=== PATIENT | female | born 1995 | race Caucasian/White ===

== ENCOUNTER 2025-03-29 15:24 | Emergency (ER) | payer OTHER, SELFPAY ==
[2025-03-29 15:26] VITALS: BP 124/90
[2025-03-29 15:54] LABS: % Basophils 0.4 % (0-2); % Eosinophils 1.5 % (0-6); % Immature Granulocytes 0.2 % (0-0.5); % Lymphocytes 14.7 % (20.5-51.1); % Monocytes 5.5 % (1.7-9.3); % Neutrophils 77.7 % (42.2-75.2); Absolute Eosinophils 0.1 10^3/uL (0-0.7); Absolute Lymphocytes 1.2 10^3/uL (1.2-3.4); Absolute Monocytes 0.5 10^3/uL (0.1-0.6); Absolute Neutrophils 6.3 10^3/uL (1.4-6.5); Hematocrit 39.9 % (37.0-47.0); Hemoglobin 13.6 g/dL (12.0-16.0); Mean Corp Hgb Conc. 34.1 g/dL (33.0-37.0); Mean Corpuscular Hgb 28.6 pg (27.0-31.0); Nucleated Red Blood Cells % 0 %; Platelet Count 273 10^3/uL (130-400); Red Blood Cell Count 4.75 10^6/uL (4.20-5.40); Red Cell Dist. Width 14.4 % (11.5-14.5); White Blood Cell Count 8.2 10^3/uL (4.8-10.8)
[2025-03-29 16:17] LABS: HCG, Serum Qualitative Screen Negative
[2025-03-29 16:20] LABS: ALT (SGPT) 92 U/L (0-35); AST (SGOT) 54 U/L (14-36); Albumin 4.6 g/dl (3.5-5.0); Alkaline Phosphatase 96 U/L (38-126); Blood Urea Nitrogen 9 mg/dl (7-17); Calcium 9.8 mg/dl (8.4-10.2); Carbon Dioxide 25 mmol/L (22-30); Chloride 107 mmol/L (98-107); Glucose 112 mg/dl (70-99); Potassium 4.1 mmol/L (3.5-5.1); Sodium 140 mmol/L (135-145); Total Bilirubin 0.6 mg/dl (0.2-1.3); Total Protein 8.2 g/dl (6.3-8.2); Troponin I < 0.012 ng/ml; eGFR > 60.00
[2025-03-29 16:49] LABS: TSH Reflex To Free T4 1.08 uIU/ml (0.47-4.68)
--- NOTE | 2025-03-29 18:40 | ED.GENMED ---
History of Present Illness
<ISAAC Rosario - Last Filed: 03/30/25 07:05>
General
Chief Complaint: Throat Problem
Source: patient
Exam Limitations: none
Time Seen by Provider: 03/29/25 17:20
Nursing documentation reviewed up to this point in time: agreed with
History of Present Illness
History of Present Illness:
29yr old female presents to the ER for evaluation. She reports for the past 3 days that she has had discomfort in her throat and upper chest. She notices it is worse when she swallows even has pain at rest. She denies however this sensation of a'
sore throat like I'm sick.' she went to urgent care and they were concerned that they possibly felt a lump to the right neck and sent here to the ER.
She denies a sensation of a sore throat denies any shortness of breath. She does feel sore in the chest when she takes a deep breath however she denies any shortness of breath. She denies any abdominal pain. She does have a history of reflux.
She is on Tirzepatide and has been on this for the past 1 month 6 days ago did receive a higher dose.
She vapes nicotine, no history of DVT PE, no control. She is not short of breath. No leg swelling
Past History
<ISAAC Rosario - Last Filed: 03/30/25 07:05>
Past History
ED Past Medical History: Other (Cellulitis); Negative Asthma, HTN, Hypercholesterolemia or NIDDM
ED Past Surgical History: and Other (Breast augmentation,)
Social History
Tobacco: Smoker
Alcohol: Chronic alcoholic
Drug: Cocaine and IVDA (Heroin)
Personal: Single
Living: with family
Review of Systems
<ISAAC Rosario - Last Filed: 03/30/25 07:05>
Review of Systems
Allergies reviewed?: Yes
All Other Systems: ROS reviewed and negative except as documented in HPI and ROS
Constitutional: Reports no symptoms
EENT: Reports other ('sore to throat/neck with swallowing' )
Respiratory: Reports other (discomfort when taking a deep breath ); Denies trouble breathing
Cardiac: Reports chest pain (soreness to anterior chest )
ABD/GI: Reports no symptoms
: Reports no symptoms
Musculoskeletal: Reports no symptoms
Skin: Reports no symptoms
Neurological: Reports no symptoms
Psychiatric: Reports no symptoms
Phy Exam
<ISAAC Rosario - Last Filed: 03/30/25 07:05>
General Physical Exam
General Presentation: no apparent distress
General age: appears stated age
General Skin: warm and dry
General Habitus: normal
General Mental: alert
General Hydration: appears well hydrated
ENT Exam
ENT Exam: EOMI, pharynx normal (No pharyngeal swelling tolerating secretions well no drooling ) and neck supple
Cardiovascular Exam
Cardiovascular Exam: regular rate/rhythm, no murmur and normal peripheral pulses
Pulmonary Exam
Pulmonary Exam: lungs clear and no respiratory distress
Gastrointestinal Exam
Gastrointestinal Exam: non tender and soft
Neurological Exam
Neurological Exam: alert and oriented x3
Musculoskeletal Exam
Musculoskeletal Exam: full ROM
Skin Exam
Skin Exam: normal color and warm/dry
Psychiatric Exam
Psychiatric Exam: normal mood/affect
Course
<ISAAC Rosario - Last Filed: 03/30/25 07:05>
Orders/Labs/Results
Orders:
Orders
03/29/25 15:26
Electrocardiogram (*1) Urgent
Reason for Study: Chest Pain
EKG- Treatment ONCE
03/29/25 15:29
Test Result ONCE
03/29/25 15:47
Complete Blood Count/With Diff Urgent
Comprehensive Metabolic Panel Urgent
HCG, Serum Qualitative Screen Urgent
Lipase Urgent
TSH Reflex To Free T4 Urgent
Troponin I Urgent
03/29/25 18:40
Add On- LAB Urgent
Tests Added?: lipase
03/29/25 18:53
CT Chest With Iv Contrast Urgent
Comment: please include upper airway/neck region
Reason For Exam: pain to chest /neck with swallowing;
03/29/25 18:57
IV Insert/Care/Rem.- Treatment PRN
0.9% Sodium Chloride 1000 ml [Nss] 1,000 ml IV BOLUS
03/29/25 19:00
CT Neck With Iv Contrast Urgent
Comment:
Reason For Exam: pain with swallowing
Abnormal Lab Results
03/29/25
15:47
Neutrophils % 77.7 H %
(42.2-75.2)
Lymphocytes % 14.7 L %
(20.5-51.1)
Glucose 112 H mg/dl
(70-99)
AST 54 H U/L
(14-36)
ALT 92 H U/L
(0-35)
03/29/25 15:47
03/29/25 15:47
Vital Signs
Initial and Last Documented VS:
Initial Vital Signs
Temp Pulse Resp BP Pulse Ox
98.5 F 104 16 124/90 98
03/29/25 15:26 03/29/25 15:26 03/29/25 15:26 03/29/25 15:26 03/29/25 15:26
Last Documented Vital Signs
Temp Pulse Resp BP Pulse Ox
98.5 F 96 20 188/76 99
03/29/25 15:26 03/29/25 21:00 03/29/25 21:16 03/29/25 21:16 03/29/25 21:16
Visitor Services Coordinator consulted with Physician
Visitor Services Coordinator consulted with physician?: Yes
Name of Physician Consulted: Noh
<Carroll Perales PA-C - Last Filed: 03/29/25 20:57>
Orders/Labs/Results
Orders:
Orders
03/29/25 15:26
Electrocardiogram (*1) Urgent
Reason for Study: Chest Pain
EKG- Treatment ONCE
03/29/25 15:29
Test Result ONCE
03/29/25 15:47
Complete Blood Count/With Diff Urgent
Comprehensive Metabolic Panel Urgent
HCG, Serum Qualitative Screen Urgent
Lipase Urgent
TSH Reflex To Free T4 Urgent
Troponin I Urgent
03/29/25 18:40
Add On- LAB Urgent
Tests Added?: lipase
03/29/25 18:53
CT Chest With Iv Contrast Urgent
Comment: please include upper airway/neck region
Reason For Exam: pain to chest /neck with swallowing;
03/29/25 18:57
IV Insert/Care/Rem.- Treatment PRN
0.9% Sodium Chloride 1000 ml [Nss] 1,000 ml IV BOLUS
03/29/25 19:00
CT Neck With Iv Contrast Urgent
Comment:
Reason For Exam: pain with swallowing
Abnormal Lab Results
03/29/25
15:47
Neutrophils % 77.7 H %
(42.2-75.2)
Lymphocytes % 14.7 L %
(20.5-51.1)
Glucose 112 H mg/dl
(70-99)
AST 54 H U/L
(14-36)
ALT 92 H U/L
(0-35)
03/29/25 15:47
03/29/25 15:47
Vital Signs
Initial and Last Documented VS:
Initial Vital Signs
Temp Pulse Resp BP Pulse Ox
98.5 F 104 16 124/90 98
03/29/25 15:26 03/29/25 15:26 03/29/25 15:26 03/29/25 15:26 03/29/25 15:26
Last Documented Vital Signs
Temp Pulse Resp BP Pulse Ox
98.5 F 96 20 188/76 99
03/29/25 15:26 03/29/25 21:00 03/29/25 21:16 03/29/25 21:16 03/29/25 21:16
<ISAAC Rosario - Last Filed: 03/30/25 07:05>
MDM/Problems Addressed
MDM/Problems Addressed:
Patient is a 29-year-old female describing pain when she swallows in her throat neck area and upper chest. She denies any recent illness fever chills this does not feel like a sore throat as if she was sick. She describes this as pain worse when
she swallows in this region. She denies any actual shortness of breath that time she does feel pain with taking a deep breath. She is in no acute distress she is not hypoxic symptoms not concerning with PE. Case discussed with ED physician will
order CT neck and CT chest labs reviewed LFTs very minimally elevated normal white, normal lipase
Care of patient at this time transferred to [facility]
<ISAAC Rosario - Last Filed: 03/30/25 07:05>
*Pulse Oximetry
Patient hypoxic: no
Comment: 99% on room air not hypoxic
*EKG
Interpreted by ED Provider?: Yes
Heart Rate: 103
Rate: tachycardiac
Rhythm: sinus
Ischemia: no ischemia
<Carroll Perales PA-C - Last Filed: 03/29/25 20:57>
*Radiology
Radiology exam reviewed: radiology read reviewed
*Critical Care Note
Total Time (30-74mins, 75-104mins- exclusive of procedures): Not Applicable
<Carroll Perales PA-C - Last Filed: 03/29/25 20:57>
Patient Management
Escalation/DeEscalation of care consider admission/obs:
Patient received in signout pending CT scan results. CT scan ultimately showed findings suggestive of reflux esophagitis. I had extensive conversation with patient in regards to what this diagnosis meant, symptoms to expect as well as management
of the symptoms and follow-up. We discussed dietary modification as well as patient did note she often ate late at night and would go to bed shortly thereafter. Highly encouraged the patient to eat dinner 2 to 3 hours prior to going to sleep. We
also discussed the likely need for close follow-up with GI as patient would likely need an EGD to get a better more comprehensive diagnosis and evaluation. Given her findings I will notify the [facility] staff to hopefully expedite an outpatient
follow-up. Will initiate the patient on omeprazole and Carafate. She is otherwise stable for discharge home
ED Attending Note
<ISAAC Rosario - Last Filed: 03/30/25 07:05>
-
Portions of this chart may have been created with voice recognition software.� Occasional wrong word or��sound alike� substitutions may have occurred due to the inherent limitations of voice recognition software.
Discharge Plan
Departure
Patient Disposition: Home (Routine Discharge)
Date of Disposition: 03/29/25
Time of Disposition: 20:43
Patient with high blood pressure during this ER visit?: No
Discharge Problem:
Esophagitis
Instructions: Acid reflux and GERD in adults
Prescriptions:
New
omeprazole 40 mg capsule,delayed release(DR/EC)
40 mg PO DAILY Qty: 60 0RF
sucralfate [Carafate] 100 mg/mL suspension
10 ml PO BID Qty: 1000 0RF
Referrals:
Dane Luna, DO [Family Provider]
Ghanshyam Cook MD [Active, Gastroenterology]
Interventions
Interventions:
*Risk Screen - Suicide Last Done: 03/29/25 19:16
*General Assessment Last Done: 03/29/25 19:07
*Neglect/Abuse Screening Last Done: 03/29/25 19:16
*ED- Fall Risk Assessment Last Done: 03/29/25 19:07
*ED COVID-19 Vaccine History Last Done: 03/29/25 19:07
*Nursing Disposition Last Done: 03/29/25 21:16
ED- Cardiac Assessment Last Done: 03/29/25 19:18
ED-EENT Assessment Last Done: 03/29/25 19:18
ED- Pulmonary Assessment Last Done: 03/29/25 19:18
Discharge Date and Time
Discharge Date/Time: 03/29/25 21:20
Print Language: BELARUSIAN
[2025-03-29 18:58] VITALS: BP 126/82
[2025-03-29 19:00] VITALS: BP 115/81
[2025-03-29 19:07] VITALS: BMI 27.0
[2025-03-29 19:15] LABS: Lipase 140 U/L (23-300)
[2025-03-29] MEDS: NSS 1000 IV (19:43)
[2025-03-29 21:16] VITALS: BP 188/76
== END 2025-03-29 21:20 | disposition home or self-care (01) ==
LOC: EMR 15:24
PROVIDERS: EMERGENCY PHYSICIAN Emergency Medicine; FAMILY PHYSICIAN Family Medicine
DX: K20.90 Esophagitis, unspecified without bleeding (principal); F17.200 Nicotine dependence, unspecified, uncomplicated; I10 Essential (primary) hypertension; Z79.85 Long-term (current) use of injectable non-insulin antidiabetic drugs
CPT/HCPCS: 99284; 96360; 70491; 71260; 80053; 83690; 84443; 84484; 84703; 85025; 93005; Q9967

== ENCOUNTER 2025-05-29 06:25 | Day surgery (SDC) | payer OTHER, SELFPAY | END 2025-05-29 10:38 | disposition home or self-care (01) | LOC: GI 06:25 | PROVIDERS: ATTENDING PHYSICIAN Student in an Organized Health Care Education/Training Program | DX: R12 Heartburn (principal); K44.9 Diaphragmatic hernia without obstruction or gangrene; K22.10 Ulcer of esophagus without bleeding; K21.00 Gastro-esophageal reflux disease with esophagitis, without bleeding | CPT/HCPCS: 43239; 88305 ==

== ENCOUNTER 2025-08-22 06:23 | Day surgery (SDC) | payer OTHER, SELFPAY | END 2025-08-22 14:55 | disposition home or self-care (01) | LOC: GI 06:23 | PROVIDERS: ATTENDING PHYSICIAN Student in an Organized Health Care Education/Training Program | DX: K44.9 Diaphragmatic hernia without obstruction or gangrene (principal); K22.89 Other specified disease of esophagus; K22.10 Ulcer of esophagus without bleeding; K31.89 Other diseases of stomach and duodenum; K29.50 Unspecified chronic gastritis without bleeding; B96.81 Helicobacter pylori [H. pylori] as the cause of diseases classified elsewhere; K20.0 Eosinophilic esophagitis | CPT/HCPCS: 43239; 71046; 88305; 88342 ==

== ENCOUNTER 2025-08-22 14:43 | Emergency (ER) | payer OTHER, SELFPAY ==
[2025-08-22 14:49] VITALS: BP 153/90
--- NOTE | 2025-08-22 15:50 | ED.GENMED ---
History of Present Illness
General
Chief Complaint: Breathing Problem
Source: patient
Exam Limitations: none
Time Seen by Provider: 08/22/25 15:50
Nursing documentation reviewed up to this point in time: agreed with
History of Present Illness
History of Present Illness:
30-year-old female with history of anxiety/depression was sent here from the GI lab post upper endoscopy where she was intubated, upon extubation she vomited and they sent her here for evaluation because she was feeling some shortness of breath
afterwards and they were concerned about possible aspiration. She presents feeling a little groggy and her throat is sore from the tube but she denies feeling short of breath. She remembers when she woke up she felt that she had to take some deep
breaths for a while. She does not have a cough
Past History
Past History
ED Past Medical History: Other (Cellulitis); Negative Asthma
ED Past Surgical History: and Other (Breast augmentation,)
Social History
Tobacco: Smoker
Alcohol: Chronic alcoholic
Drug: Cocaine and IVDA (Heroin)
Personal: Single
Living: with family
Review of Systems
Review of Systems
Allergies reviewed?: Yes
All Other Systems: ROS reviewed and negative except as documented in HPI and ROS
Phy Exam
Physical Exam
Physical Exam:
GENERAL: No acute distress. A&Ox3.
CONSTITUTIONAL: Afebrile.
EYES: clear, conjunctivae normal
ENMT: moist mucus membranes, Pharynx nl
RESPIRATORY: Regular respirations, nonlabored, lungs very few scattered high pitched expiratory wheezes, Pulse ox 98% room air
CARDIOVASCULAR: Regular rate and rhythm, no murmurs, no rubs.
GI: Soft, nontender, normal BS
MUSCULOSKELETAL: Moves with ease. Well perfused.
SKIN: Warm, dry, pink
PSYCH: Normal mood and affect. Well kept, interactive and appropriate
NEUROLOGIC: Awake, alert and oriented. No focal neurological deficits
Course
Orders/Labs/Results
Orders:
Orders
08/22/25 14:53
CXR2 [CR Chest - 2 Views ] Urgent
Comment:
Reason For Exam: possible aspiration
Vital Signs
Initial and Last Documented VS:
Initial Vital Signs
Temp Pulse Resp BP Pulse Ox
98.6 F 105 16 153/90 95
08/22/25 14:49 08/22/25 14:49 08/22/25 14:49 08/22/25 14:49 08/22/25 14:49
Last Documented Vital Signs
Temp Pulse Resp BP Pulse Ox
98.1 F 103 16 116/72 95
08/22/25 15:55 08/22/25 15:55 08/22/25 15:55 08/22/25 15:55 08/22/25 15:57
MDM/Problems Addressed
Differential Diagnosis Includes:
Pharyngitis from ET tube, aspiration
MDM/Problems Addressed:
30-year-old female with history of anxiety/depression was sent here from the GI lab post upper endoscopy where she was intubated, upon extubation she vomited and they sent her here for evaluation because she was feeling some shortness of breath
afterwards and they were concerned about possible aspiration. She presents feeling a little groggy and her throat is sore from the tube but she denies feeling short of breath. She remembers when she woke up she felt that she had to take some deep
breaths for a while. She does not have a cough
Chest x-ray radiology report read: And NAD.
Patient's lungs are clear, she has been walked up and down the hallway and pulse ox maintaining 97 to 98% room air.
She is requesting to go home
*Pulse Oximetry
SaO2: 95
Oxygen Mode of Delivery: Room air
Patient hypoxic: no
*Critical Care Note
Total Time (30-74mins, 75-104mins- exclusive of procedures): Not Applicable
ED Attending Note
-
Portions of this chart may have been created with voice recognition software.� Occasional wrong word or��sound alike� substitutions may have occurred due to the inherent limitations of voice recognition software.
Discharge Plan
Departure
Patient Disposition: Home (Routine Discharge)
Date of Disposition: 08/22/25
Time of Disposition: 15:53
Patient with high blood pressure during this ER visit?: No
Condition: Good
Discharge Problem:
Shortness of breath
Instructions: Aspiration pneumonia (DC)
Prescriptions:
No Action
omeprazole 40 mg capsule,delayed release(DR/EC)
40 mg PO DAILY Qty: 60 0RF
sucralfate [Carafate] 100 mg/mL suspension
10 ml PO BID Qty: 1000 0RF
Referrals:
Dane Luna, DO [Family Provider] - As needed
Activity Restrictions/Additional Instructions:
As we discussed, right now your lungs sound clear with a few minor wheezes, your chest x-ray shows no abnormality
If you develop fever, cough, shortness of breath or feel sicker in any way see your doctor for reevaluation.
Although you have no sign of it at this point I have provided you with instructions on aspiration pneumonia FYI.
Interventions
Interventions:
*Risk Screen - Suicide Last Done: 08/22/25 14:49
*General Assessment Last Done: 08/22/25 15:49
*Neglect/Abuse Screening Last Done: 08/22/25 14:49
*ED- Fall Risk Assessment Last Done: 08/22/25 15:49
*ED COVID-19 Vaccine History Last Done: 08/22/25 15:49
*ED Influenza Vaccine History Last Done: 08/22/25 15:49
*Nursing Disposition Last Done: 08/22/25 16:01
ED- Cardiac Assessment Last Done: 08/22/25 15:49
ED- Pulmonary Assessment Last Done: 08/22/25 15:49
Discharge Date and Time
Discharge Date/Time: 08/22/25 16:01
Print Language: AZERI
[2025-08-22 15:55] VITALS: BP 116/72
== END 2025-08-22 16:01 | disposition home or self-care (01) ==
LOC: EMR 14:43
PROVIDERS: EMERGENCY PHYSICIAN Emergency Medicine; FAMILY PHYSICIAN Family Medicine
DX: R06.02 Shortness of breath (principal); F17.200 Nicotine dependence, unspecified, uncomplicated
CPT/HCPCS: 99283; 71046